=== PATIENT | male | born 1980 | race African-American/Black ===

== ENCOUNTER 2021-05-07 20:50 | Emergency (ER) | payer OTHER ==
[~2021-05-07] VITALS: Ht 170.2 cm; Wt 108.6 kg
[2021-05-07] MEDS ORDERED: COLC0.6T73 PO (21:21)
[2021-05-07] MEDS ORDERED: ASPI-1450 PO (21:21)
[2021-05-07] MEDS ORDERED: DICL100G31 TP (21:21)
[2021-05-07] MEDS ORDERED: INDOMETHACIN 50 MG CAPSULE PO ONE (23:00)
[2021-05-07] MEDS ORDERED: MORPHINE SULFATE 2 MG/ML SYRINGE IM ONE (23:45)
[2021-05-08 02:10] VITALS: BP 132/75
== END 2021-05-08 02:11 | disposition home or self-care (01) ==
LOC: EMS 20:53
DX: M10.9 Gout, unspecified (principal); I10 Essential (primary) hypertension; Z79.82 Long term (current) use of aspirin; Z79.899 Other long term (current) drug therapy
CPT/HCPCS: 36415; 73110; 84550; 96372; 99285; J2270